=== PATIENT | male | born 1995 | race African-American/Black ===

== ENCOUNTER 2021-03-02 08:25 | Emergency (ER) | payer OTHER ==
[2021-03-02 10:08] LABS: Urine Blood Negative (Negative); Urine Glucose Negative (Negative); Urine Protein Negative (Negative); Urine Specific Gravity >=1.030 (1.005-1.030); Urine pH 5.5 (5.0-7.0)
--- NOTE | 2021-03-02 10:23 | EDPHYS ---
Physician Documentation [facility] Name: Giovanni Ramhan Age: 25 yrs Sex: Male : 1995 Arrival Date: 03/02/2021 Time: 08:29 Bed 7 Private MD: ED Physician Darrius Dumont HPI: 03/02 09:59 This 25 yrs old Black Male presents to ER via Ambulatory with complaints of Groin Pain. peace 09:59 The patient presents with tenderness, that is mild, of the perineum. Onset: The peace symptoms/episode began/occurred 2 week(s) ago. Modifying factors: The symptoms are alleviated by nothing, the symptoms are aggravated by movement. Associated signs and symptoms: Pertinent positives: ED. Severity of symptoms: At their worst the symptoms were mild, in the emergency department the symptoms are unchanged. The patient has not experienced similar symptoms in the past. Historical: - Allergies: 08:47 No Known Allergies; iw - Home Meds: 08:47 None [Active]; iw - PMHx: :47 None; iw - PSHx: 08:47 None; iw - Immunization history:: Client reports having NOT received the Covid vaccine. - Social history:: Smoking status: Patient denies any tobacco usage or history of. ROS: 10:01 Constitutional: Negative for fever, chills, and weight loss, Eyes: Negative for injury, peace pain, redness, and discharge, ENT: Negative for injury, pain, and discharge, Neck: Negative for injury, pain, and swelling, Cardiovascular: Negative for chest pain, palpitations, and edema, Respiratory: Negative for shortness of breath, cough, wheezing, and pleuritic chest pain, Abdomen/GI: Negative for abdominal pain, nausea, vomiting, diarrhea, and constipation, Back: Negative for injury and pain, MS/Extremity: Negative for injury and deformity, Skin: Negative for injury, rash, and discoloration, Neuro: Negative for headache, weakness, numbness, tingling, and seizure, Psych: Negative for depression, anxiety, suicide ideation, homicidal ideation, and hallucinations, Allergy/Immunology: Negative for hives, rash, and allergies, Endocrine: Negative for neck swelling, polydipsia, polyuria, polyphagia, and marked weight changes, Hematologic/Lymphatic: Negative for swollen nodes, abnormal bleeding, and unusual bruising. 10:01 : Positive for injury or acute deformity, of the perineum. Exam: 10:01 Constitutional: This is a well developed, well nourished patient who is awake, alert, peace and in no acute distress. Head/Face: Normocephalic, atraumatic. Eyes: Pupils equal round and reactive to light, extra-ocular motions intact. Lids and lashes normal. Conjunctiva and sclera are non-icteric and not injected. Cornea within normal limits. Periorbital areas with no swelling, redness, or edema. ENT: Nares patent. No nasal discharge, no septal abnormalities noted. Tympanic membranes are normal and external auditory canals are clear. Oropharynx with no redness, swelling, or masses, exudates, or evidence of obstruction, uvula midline. Mucous membranes moist. Neck: Trachea midline, no thyromegaly or masses palpated, and no cervical lymphadenopathy. Supple, full range of motion without nuchal rigidity, or vertebral point tenderness. No Meningismus. Chest/axilla: Normal chest wall appearance and motion. Nontender with no deformity. No lesions are appreciated. Cardiovascular: Regular rate and rhythm with a normal S1 and S2. No gallops, murmurs, or rubs. Normal PMI, no JVD. No pulse deficits. Respiratory: Lungs have equal breath sounds bilaterally, clear to auscultation and percussion. No rales, rhonchi or wheezes noted. No increased work of breathing, no retractions or nasal flaring. Abdomen/GI: Soft, non-tender, with normal bowel sounds. No distension or tympany. No guarding or rebound. No evidence of tenderness throughout. Back: No spinal tenderness. No costovertebral tenderness. Full range of motion. Skin: Warm, dry with normal turgor. Normal color with no rashes, no lesions, and no evidence of cellulitis. MS/ Extremity: Pulses equal, no cyanosis. Neurovascular intact. Full, normal range of motion. Neuro: Awake and alert, GCS 15, oriented to person, place, time, and situation. Cranial nerves II-XII grossly intact. Motor strength 5/5 in all extremities. Sensory grossly intact. Cerebellar exam normal. Normal gait. Psych: Awake, alert, with orientation to person, place and time. Behavior, mood, and affect are within normal limits. 10:01 : CVA tenderness, is absent, Male external genitalia: normal, Bladder: is normal, Rectal exam: is normal, ON VISUAL INSPECTION, Sexual behavior: the patient is sexually active, and reports a single partner, ed since injury. Vital Signs: 08:43 BP 122 / 96; Pulse 74; Resp 16; Temp 99.0; Pulse Ox 100% on R/A; Weight 65.77 kg; iw Height 6 ft. 1 in. (185.42 cm); Pain 08/04; 08:43 Body Mass Index 19.13 (65.77 kg, 185.42 cm) iw MDM: 09:18 Patient medically screened. peace 10:07 Differential diagnosis: UTI. Data reviewed: vital signs, nurses notes, lab test peace result(s), urinalysis. Data interpreted: night monitor: not applicable for this patient encounter. rate is 74 beats/min, rhythm is regular, Pulse oximetry: on room air is 100 %. Counseling: I had a detailed discussion with the patient and/or guardian regarding: the historical points, exam findings, and any diagnostic results supporting the discharge/admit diagnosis, lab results. 03/02 10:08 Order name: Urine Dipstick-Ancillary EDMS 03/02 09:59 Order name: Urine Dipstick-Ancillary (obtain specimen); Complete Time: 10:06 peace Administered Medications: 10:13 Drug: Motrin (ibuprofen) 600 mg Route: PO; iw 10:30 Follow up: Response: No adverse reaction iw Disposition Summary: 03/02/21 10:23 Discharge Ordered Location: Home peace Problem: new peace Symptoms: have improved peace Condition: Stable peace Diagnosis - Contusion of scrotum and testes peace Followup: peace - With: Private Physician - When: 2 - 3 days - Reason: Recheck today's complaints, Continuance of care, Re-evaluation by your physician Followup: peace - With: Karl Hough MD - When: 2 - 3 days - Reason: Recheck today's complaints, Re-evaluation by your physician Discharge Instructions: - Discharge Summary Sheet peace - Contusion peace - Contusion, [id number] peace Forms: - Medication Reconciliation Form peace - Thank You Letter peace - Antibiotic Education peace - Prescription Opioid Use peace Prescriptions: - Ibuprofen 600 mg Oral Tablet - take 1 tablet by ORAL route every 6 hours As needed take with food; 30 tablet; peace Refills: 0, Product Selection Permitted Signatures: Dispatcher [employer] Darrius Zuniga MD MD cha Williams, Irene RN RN iw
--- NOTE | 2021-03-02 10:23 | ER ---
Nurse's Notes [facility] Name: Giovanni Rahman Age: 25 yrs Sex: Male : 1995 Arrival Date: 03/02/2021 Time: 08:29 Bed 7 Private MD: Diagnosis: Contusion of scrotum and testes Presentation: 03/02 08:43 Chief complaint: Patient states: a few weeks ago was on top of roof of house, slipped, iw was hanging and then dropped down, landed on a hand rail between his legs , now is still having pain behind his testicles. Coronavirus screen: At this time, the client does not indicate any symptoms associated with coronavirus-19. Ebola Screen: Patient negative for fever greater than or equal to 101.5 degrees Fahrenheit, and additional compatible Ebola Virus Disease symptoms Patient denies exposure to infectious person. Patient denies travel to an Ebola-affected area in the 21 days before illness onset. No symptoms or risks identified at this time. Initial Sepsis Screen: Does the patient meet any 2 criteria? No. Patient's initial sepsis screen is negative. Does the patient have a suspected source of infection? No. Patient's initial sepsis screen is negative. Risk Assessment: Do you want to hurt yourself or someone else? Patient reports no desire to harm self or others. Onset of symptoms was February 15, 2021. 08:43 Method Of Arrival: Ambulatory 08:43 Acuity: LAURITA 3 iw Historical: - Allergies: 08:47 No Known Allergies; iw - Home Meds: 08:47 None [Active]; iw - PMHx: 08:47 None; iw - PSHx: 08:47 None; iw - Immunization history:: Client reports having NOT received the Covid vaccine. - Social history:: Smoking status: Patient denies any tobacco usage or history of. Screenin:17 Abuse screen: Denies threats or abuse. Denies injuries from another. Nutritional iw screening: No deficits noted. Tuberculosis screening: No symptoms or risk factors identified. Fall Risk None identified. Assessment: 09:17 General: Appears in no apparent distress. Behavior is calm, cooperative. Pain: iw Complains of pain in groin. Neuro: Level of Consciousness is awake, alert, obeys commands, Oriented to person, place, time, situation. Respiratory: Respiratory effort is even, unlabored. Vital Signs: 08:43 BP 122 / 96; Pulse 74; Resp 16; Temp 99.0; Pulse Ox 100% on R/A; Weight 65.77 kg; iw Height 6 ft. 1 in. (185.42 cm); Pain 1/10; 08:43 Body Mass Index 19.13 (65.77 kg, 185.42 cm) iw ED Course: 08:29 Patient arrived in ED. as 08:47 Triage completed. iw 08:47 Arm band placed on. iw 09:16 Lynn Brooks, RN is Primary Nurse. iw 09:18 Darrius Dumont MD is Attending Physician. peace 09:18 Patient has correct armband on for positive identification. iw 09:35 No provider procedures requiring assistance completed. Patient did not have IV access iw during this emergency room visit. 10:10 Karl Hough MD is Referral Physician. peace Administered Medications: 10:13 Drug: Motrin (ibuprofen) 600 mg Route: PO; iw 10:30 Follow up: Response: No adverse reaction iw Outcome: 10:23 Discharge ordered by . peace 11:05 Discharged to home ambulatory. iw 11:05 Condition: good 11:05 Discharge instructions given to patient, Instructed on discharge instructions, follow up and referral plans. medication usage, Demonstrated understanding of instructions, follow-up care, medications, Prescriptions given X 1. 11:06 Patient left the ED. iw Signatures: Darrius Dumont MD MD cha Martinez, Amelia as Lynn Brooks, RN RN iw
[2021-03-02] MEDS ORDERED: IBUPROFEN 200 MG TAB PO ONE (10:31)
[2021-03-02 11:17] VITALS: BP 122/96; TEMP 99; O2SAT 100
== END 2021-03-02 11:06 | disposition home or self-care (01) ==
LOC: ER 08:25
DX: S30.22XA Contusion of scrotum and testes, initial encounter (principal); W13.2XXA Fall from, out of or through roof, initial encounter
CPT/HCPCS: 81003; 99283